=== PATIENT | female | born 1945 | race Caucasian/White ===

== ENCOUNTER 2017-05-11 18:37 | Inpatient (IN) | payer MEDICARE, MEDICAID ==
[~2017-05-11] VITALS: Ht 160 cm; Wt 89.1 kg
[2017-05-11 20:05] VITALS: BP 185/68
[2017-05-11] MEDS ORDERED: POLYETHYLENE GLYCOL 17 GM PACKET PO PRN (21:30)
[2017-05-11] MEDS ORDERED: DEXTROSE 50%, 50ML SYRINGE IVPush PRN (21:30)
[2017-05-11] MEDS ORDERED: ONDANSETRON 2MG/ML, 2ML IVPush PRN (21:30)
[2017-05-11] MEDS ORDERED: DOCUSATE 100 MG CAPSULE PO PRN (21:30)
[2017-05-11] MEDS ORDERED: GLUCAGON 1 MG IM PRN (21:30)
[2017-05-11] MEDS ORDERED: DEXTROSE 4 GM TAB.CHEW PO PRN (21:30)
[2017-05-11] MEDS ORDERED: hydrALAzine 20 MG/ML, 1ML IVPush PRN (21:30)
[2017-05-11] MEDS ORDERED: ACETAMINOPHEN 325 MG TABLET PO PRN (21:30)
[2017-05-11] MEDS: PLEASE ENTER HEIGHT AND WEIGHT MC SCH (22:00)
[2017-05-11] MEDS ORDERED: PLEASE ENTER ALLERGIES MC SCH ×4 (22:00→22:30)
[2017-05-11] MEDS ORDERED: TRAVOPROST OPHTH 0.004%, 2.5ML OP SCH (22:00)
[2017-05-11] MEDS: LACTATED RINGERS 1,000 ML IV SCH (23:06)
[2017-05-11] MEDS: CEFTRIAXONE PMX 2GM/50ML 50 ML IV SCH (23:29)
[2017-05-11] MEDS: DILTIAZEM 30 MG TABLET PO SCH (23:29)
[2017-05-12] MEDS: PLEASE ENTER HEIGHT AND WEIGHT MC SCH ×2 (00:43→14:00)
[2017-05-12 01:04] VITALS: BP 161/59
[2017-05-12 03:57] LABS: HEMATOCRIT 32.1 % (34.6-47.8); HEMOGLOBIN 10.6 g/dL (11.7-16.4); WHITE BLOOD COUNT 4.8 x10^3/uL (3.4-10)
[2017-05-12 04:09] LABS: ASPARTATE AMINO TRANSFERASE 9 U/L (15-37); BLOOD UREA NITROGEN 10 mg/dL (7-18)
[2017-05-12] MEDS ORDERED: MAGNESIUM SULFATE PMX 2GM/50ML 50 ML IV ONE (05:00)
[2017-05-12] MEDS: GUAIFENESIN/DM 200-20MG, 10ML UDC PO PRN (05:04)
[2017-05-12] MEDS ORDERED: ALBUTEROL/IPRATROPIUM 2.5MG/0.5MG, 3 ML ONE ×2 (05:06→21:37)
[2017-05-12] MEDS: ALBUTEROL/IPRATROPIUM 2.5MG/0.5MG, 3 ML NPPB SCH ×4 (05:09→14:32)
[2017-05-12 05:39] VITALS: BP 155/77
[2017-05-12] MEDS: DILTIAZEM 30 MG TABLET PO SCH ×3 (05:42→18:30)
[2017-05-12] MEDS: INSULIN ASPART 100 UNITS/ML, PEN SQ-INSULIN SCH ×3 (07:00→16:00)
[2017-05-12 07:23] VITALS: BP 152/79
[2017-05-12] MEDS: SODIUM CHLORIDE FLUSH 10ML SYR IVF SCH ×2 (09:00→23:14)
[2017-05-12] MEDS ORDERED: OMNIPAQUE 350 MG/ML, 75ML BOTTLE ONE (09:10)
[2017-05-12] MEDS: LOSARTAN 50MG TABLET PO SCH (12:12)
[2017-05-12 13:04] VITALS: BP 144/82
[2017-05-12] MEDS: LACTATED RINGERS 1,000 ML IV SCH (14:37)
[2017-05-12] MEDS ORDERED: INSULIN DETEMIR 100 UNITS/ML, PEN SQ-INSULIN SCH (17:00)
[2017-05-12] MEDS ORDERED: FENTANYL PF 250 MCG/5ML ONE (18:40)
[2017-05-12] MEDS ORDERED: LIDOCAINE GEL 2%, 5ML ONE (18:40)
[2017-05-12] MEDS ORDERED: PROPOFOL 10 MG/ML, 20ML ONE (18:44)
[2017-05-12] MEDS ORDERED: GLYCOPYRROLATE 0.2MG/1ML, 5ML ONE (18:44)
[2017-05-12] MEDS ORDERED: SUCCINYLCHOLINE 20 MG/ML, 10ML ONE (18:44)
[2017-05-12] MEDS ORDERED: DEXAMETHASONE 4 MG/ML, 1ML ONE (18:44)
[2017-05-12] MEDS ORDERED: CEFAZOLIN 1,000 MG ONE (18:44)
[2017-05-12] MEDS ORDERED: ROCURONIUM 10 MG/ML ONE (18:44)
[2017-05-12] MEDS ORDERED: ONDANSETRON 2MG/ML, 2ML ONE (18:44)
[2017-05-12] MEDS ORDERED: NEOSTIGMINE 1 MG/ML, 10ML ONE (18:44)
[2017-05-12] MEDS ORDERED: VASOPRESSIN 20 UNIT/ML, 1ML ONE (18:52)
[2017-05-12] MEDS ORDERED: EPINEPHRINE 1 MG/ML, 1ML ONE (18:54)
[2017-05-12] MEDS ORDERED: BUPIVACAINE/PF 0.5% ONE (18:54)
[2017-05-12] MEDS ORDERED: PHENYLEPHRINE 10 MG/ML ONE (19:09)
[2017-05-12] MEDS ORDERED: LABETALOL 5MG/ML, 20ML ONE (21:15)
[2017-05-12] MEDS: IBUPROFEN 200 MG TABLET PO SCH (21:30)
[2017-05-12 22:46] LABS: ABG COLLECTION SITE LEFT RADIAL; COLLATERAL CIRCULATION TESTING NORMAL
[2017-05-12] MEDS: morphine SULFATE 10 MG/ML, 1ML IVPush PRN (22:54)
[2017-05-12] MEDS: PROPOFOL 100 ML IV PRN (22:55)
[2017-05-12 22:58] LABS: ASPARTATE AMINO TRANSFERASE 74 U/L (15-37); BLOOD UREA NITROGEN 9 mg/dL (7-18)
[2017-05-12 22:59] LABS: HEMATOCRIT 31.9 % (34.6-47.8); HEMOGLOBIN 10.6 g/dL (11.7-16.4); WHITE BLOOD COUNT 13.5 x10^3/uL (3.4-10)
[2017-05-12] MEDS ORDERED: PHARMACY MAY ADJ FOR RENAL FX MC SCH (23:00)
[2017-05-12] MEDS ORDERED: LIDOCAINE-MPF 1%, 2ML ENDO PRN (23:00)
[2017-05-12] MEDS: ALBUTEROL/IPRATROPIUM 2.5MG/0.5MG, 3 ML INLINE SCH (23:00)
[2017-05-12] MEDS: ACETAMINOPHEN 325 MG TABLET PO SCH (23:11)
[2017-05-12 23:14] LABS: DIFF TOTAL CELLS COUNTED 100 CELL DIFF
[2017-05-12 23:15] LABS: VERIFY COUNTS? YES
[2017-05-12] MEDS: LATANOPROST OPHTH 0.005%, 2.5ML OP SCH (23:15)
[2017-05-12] MEDS: HEPARIN 5,000 UNITS/ML, 1ML SQ SCH ×2 (23:15→23:21)
[2017-05-12 23:16] LABS: ANISOCYTOSIS 1+
[2017-05-12 23:18] LABS: LARGE PLATELETS 1+
[2017-05-13] MEDS: DILTIAZEM 30 MG TABLET PO SCH ×5 (00:32→23:30)
[2017-05-13] MEDS: CEFTRIAXONE PMX 2GM/50ML 50 ML IV SCH (00:55)
[2017-05-13] MEDS: LACTATED RINGERS 1,000 ML IV SCH ×2 (00:56→21:41)
[2017-05-13] MEDS: INSULIN ASPART 100 UNITS/ML, PEN SQ-INSULIN SCH ×5 (01:05→21:20)
[2017-05-13] MEDS: ALBUTEROL/IPRATROPIUM 2.5MG/0.5MG, 3 ML INLINE SCH ×5 (03:00→23:00)
[2017-05-13] MEDS: ACETAMINOPHEN 325 MG TABLET PO SCH ×4 (03:33→21:21)
[2017-05-13] MEDS: IBUPROFEN 200 MG TABLET PO SCH ×4 (03:33→21:21)
[2017-05-13] MEDS: morphine SULFATE 10 MG/ML, 1ML IVPush PRN (04:22)
[2017-05-13 04:36] VITALS: BP 110/39
[2017-05-13 05:08] LABS: HEMATOCRIT 31.3 % (34.6-47.8); HEMOGLOBIN 10.3 g/dL (11.7-16.4); WHITE BLOOD COUNT 12.1 x10^3/uL (3.4-10)
[2017-05-13 05:19] LABS: ASPARTATE AMINO TRANSFERASE 55 U/L (15-37); BLOOD UREA NITROGEN 12 mg/dL (7-18)
[2017-05-13] MEDS: PLEASE ENTER HEIGHT AND WEIGHT MC SCH ×2 (06:00→06:42)
[2017-05-13 06:06] LABS: ABG COLLECTION SITE LEFT RADIAL; COLLATERAL CIRCULATION TESTING NORMAL
[2017-05-13] MEDS: HEPARIN 5,000 UNITS/ML, 1ML SQ SCH ×3 (06:39→23:32)
[2017-05-13] MEDS: LOSARTAN 50MG TABLET PO SCH (09:00)
[2017-05-13] MEDS: PROPOFOL 100 ML IV PRN (09:28)
[2017-05-13] MEDS: SODIUM CHLORIDE FLUSH 10ML SYR IVF SCH ×2 (09:39→21:19)
[2017-05-13] MEDS: FAMOTIDINE 20 MG/2 ML IVPush SCH ×2 (09:39→21:19)
[2017-05-13] MEDS ORDERED: MAGNESIUM SULFATE PMX 4GM/100M 100 ML IV ONE (11:00)
[2017-05-13] MEDS: OXYcodone IR 5MG TABLET PO PRN (18:17)
[2017-05-13] MEDS: LATANOPROST OPHTH 0.005%, 2.5ML OP SCH (21:20)
[2017-05-13] MEDS: CEFTRIAXONE 2,000 MG in DEXTROSE 5% 50 ML IV SCH (21:38)
[2017-05-14] MEDS ORDERED: ALBUTEROL/IPRATROPIUM 2.5MG/0.5MG, 3 ML NPPB SCH (03:00)
[2017-05-14] MEDS: ACETAMINOPHEN 325 MG TABLET PO SCH ×4 (03:30→20:32)
[2017-05-14 04:30] LABS: ABG COLLECTION SITE RIGHT BRACHIAL
[2017-05-14] MEDS: IBUPROFEN 200 MG TABLET PO SCH ×4 (04:51→20:31)
[2017-05-14] MEDS: DILTIAZEM 30 MG TABLET PO SCH ×3 (04:52→17:41)
[2017-05-14 04:53] VITALS: BP 145/54
[2017-05-14 05:06] LABS: HEMATOCRIT 31.5 % (34.6-47.8); HEMOGLOBIN 10.4 g/dL (11.7-16.4); WHITE BLOOD COUNT 7.8 x10^3/uL (3.4-10)
[2017-05-14 05:10] LABS: ASPARTATE AMINO TRANSFERASE 24 U/L (15-37); BLOOD UREA NITROGEN 17 mg/dL (7-18)
[2017-05-14] MEDS: ALBUTEROL/IPRATROPIUM 2.5MG/0.5MG, 3 ML NPPB SCH ×5 (07:20→18:40)
[2017-05-14] MEDS: HEPARIN 5,000 UNITS/ML, 1ML SQ SCH ×3 (08:52→23:33)
[2017-05-14] MEDS: INSULIN ASPART 100 UNITS/ML, PEN SQ-INSULIN SCH ×4 (08:53→20:32)
[2017-05-14] MEDS: FAMOTIDINE 20 MG/2 ML IVPush SCH ×2 (08:53→20:39)
[2017-05-14] MEDS: LOSARTAN 50MG TABLET PO SCH (08:53)
[2017-05-14] MEDS: SODIUM CHLORIDE FLUSH 10ML SYR IVF SCH (08:53)
[2017-05-14] MEDS: ALBUTEROL/IPRATROPIUM 2.5MG/0.5MG, 3 ML INLINE SCH (16:42)
[2017-05-14 17:38] VITALS: BP 141/73
[2017-05-14] MEDS: INSULIN DETEMIR 100 UNITS/ML, PEN SQ-INSULIN SCH (17:41)
[2017-05-14] MEDS ORDERED: DILTIAZEM 5 MG/ML, 5ML ONE (18:55)
[2017-05-14] MEDS ORDERED: DILTIAZEM 125 MG in SODIUM CHLORIDE 0.9% 100 ML IV PRN ×2 (19:00→19:30)
[2017-05-14] MEDS ORDERED: CALCIUM GLUCONATE 4.6 MEQ in SODIUM CHLORIDE 0.9% 50 ML IV ONE (19:00)
[2017-05-14] MEDS ORDERED: DILTIAZEM 5 MG/ML, 5ML IVPush ONE (19:00)
[2017-05-14 19:38] VITALS: BP 134/70
[2017-05-14] MEDS: DILTIAZEM 125 MG in SODIUM CHLORIDE 0.9% 100 ML IV PRN (20:14)
[2017-05-14] MEDS: FLUTICASONE/VILANTEROL 200-25MCG/INH INH SCH (20:32)
[2017-05-14] MEDS: LATANOPROST OPHTH 0.005%, 2.5ML OP SCH (20:32)
[2017-05-14 21:37] VITALS: BP 109/64
[2017-05-14] MEDS: CEFTRIAXONE 2,000 MG in DEXTROSE 5% 50 ML IV SCH (21:54)
[2017-05-14] MEDS: OXYcodone IR 5MG TABLET PO PRN (22:02)
[2017-05-15] MEDS ORDERED: INSU100V12 INJ ×2 (00:48)
[2017-05-15] MEDS ORDERED: TIOT18CA INH (00:48)
[2017-05-15] MEDS ORDERED: ALBU6.7H NPPB (00:48)
[2017-05-15] MEDS ORDERED: IBAN150T PO (00:48)
[2017-05-15] MEDS ORDERED: BUDE10.2 INH (00:48)
[2017-05-15] MEDS ORDERED: LINA5TAB PO (00:48)
[2017-05-15] MEDS ORDERED: ALBU90AE INH (00:48)
[2017-05-15] MEDS ORDERED: INSU100C5 SQ-INSULIN (00:48)
[2017-05-15] MEDS ORDERED: TRAV5DRO EACHEYE (00:48)
[2017-05-15] MEDS ORDERED: LOSA50TA6 PO (00:48)
[2017-05-15 02:21] VITALS: BP 108/64
[2017-05-15] MEDS: ACETAMINOPHEN 325 MG TABLET PO SCH ×5 (03:30→21:30)
[2017-05-15] MEDS: IBUPROFEN 200 MG TABLET PO SCH ×4 (03:30→21:30)
[2017-05-15 05:23] LABS: HEMATOCRIT 29.4 % (34.6-47.8); HEMOGLOBIN 9.7 g/dL (11.7-16.4); WHITE BLOOD COUNT 5.8 x10^3/uL (3.4-10)
[2017-05-15 05:35] LABS: BLOOD UREA NITROGEN 15 mg/dL (7-18)
[2017-05-15] MEDS: ALBUTEROL/IPRATROPIUM 2.5MG/0.5MG, 3 ML NPPB SCH ×3 (07:00→15:00)
[2017-05-15] MEDS: DILTIAZEM 125 MG in SODIUM CHLORIDE 0.9% 100 ML IV PRN (07:28)
[2017-05-15 07:47] VITALS: BP 134/74
[2017-05-15] MEDS: HEPARIN 5,000 UNITS/ML, 1ML SQ SCH ×3 (08:27→23:11)
[2017-05-15] MEDS: INSULIN ASPART 100 UNITS/ML, PEN SQ-INSULIN SCH ×4 (08:28→21:52)
[2017-05-15] MEDS: FAMOTIDINE 20 MG/2 ML IVPush SCH ×2 (08:30→21:50)
[2017-05-15] MEDS: FLUTICASONE/VILANTEROL 200-25MCG/INH INH SCH (08:34)
[2017-05-15] MEDS: LOSARTAN 50MG TABLET PO SCH (08:38)
[2017-05-15] MEDS: DILTIAZEM 60 MG TABLET PO SCH ×3 (11:40→21:53)
[2017-05-15 11:45] VITALS: BP 110/67
[2017-05-15 14:57] VITALS: BP 119/66
[2017-05-15 17:10] VITALS: BP 153/62
[2017-05-15] MEDS: INSULIN DETEMIR 100 UNITS/ML, PEN SQ-INSULIN SCH (17:15)
[2017-05-15 20:29] VITALS: BP 125/70
[2017-05-15] MEDS ORDERED: ALBUTEROL/IPRATROPIUM 2.5MG/0.5MG, 3 ML ONE (21:16)
[2017-05-15] MEDS: CEFTRIAXONE 2,000 MG in DEXTROSE 5% 50 ML IV SCH (21:51)
[2017-05-15] MEDS: LATANOPROST OPHTH 0.005%, 2.5ML OP SCH (21:53)
[2017-05-16 03:09] VITALS: BP 152/73
[2017-05-16] MEDS: IBUPROFEN 200 MG TABLET PO SCH ×4 (03:30→20:54)
[2017-05-16] MEDS: ACETAMINOPHEN 325 MG TABLET PO SCH ×4 (03:30→20:53)
[2017-05-16 05:01] LABS: HEMATOCRIT 30.6 % (34.6-47.8); WHITE BLOOD COUNT 7.4 x10^3/uL (3.4-10)
[2017-05-16] MEDS: INSULIN DETEMIR 100 UNITS/ML, PEN SQ-INSULIN SCH ×2 (05:04→16:17)
[2017-05-16 05:11] LABS: BLOOD UREA NITROGEN 9 mg/dL (7-18)
[2017-05-16] MEDS: ASPIRIN 81 MG TABLET EC PO SCH (05:48)
[2017-05-16] MEDS ORDERED: MAGNESIUM SULFATE PMX 4GM/100M 100 ML IV ONE (07:00)
[2017-05-16] MEDS ORDERED: ALBUTEROL/IPRATROPIUM 2.5MG/0.5MG, 3 ML NPPB PRN (07:00)
[2017-05-16 07:59] VITALS: BP 146/72
[2017-05-16] MEDS: FAMOTIDINE 20 MG/2 ML IVPush SCH (08:41)
[2017-05-16] MEDS: INSULIN ASPART 100 UNITS/ML, PEN SQ-INSULIN SCH ×4 (08:41→21:08)
[2017-05-16] MEDS: HEPARIN 5,000 UNITS/ML, 1ML SQ SCH ×3 (08:41→23:08)
[2017-05-16] MEDS: LOSARTAN 50MG TABLET PO SCH (08:42)
[2017-05-16] MEDS: DILTIAZEM 60 MG TABLET PO SCH ×3 (08:42→20:54)
[2017-05-16] MEDS: FLUTICASONE/VILANTEROL 200-25MCG/INH INH SCH (08:43)
[2017-05-16] MEDS: GUAIFENESIN/DM 200-20MG, 10ML UDC PO PRN (11:36)
[2017-05-16 12:07] VITALS: BP 127/69
[2017-05-16 20:00] VITALS: BP 156/68
[2017-05-16] MEDS: LATANOPROST OPHTH 0.005%, 2.5ML OP SCH (20:53)
[2017-05-16] MEDS: CEFTRIAXONE 2,000 MG in DEXTROSE 5% 50 ML IV SCH (20:54)
[2017-05-16] MEDS: FAMOTIDINE 20 MG TABLET PO SCH (20:54)
[2017-05-17 01:45] VITALS: BP 160/79
[2017-05-17] MEDS: ACETAMINOPHEN 325 MG TABLET PO SCH ×5 (03:30→21:59)
[2017-05-17] MEDS: IBUPROFEN 200 MG TABLET PO SCH ×4 (03:30→21:30)
[2017-05-17] MEDS: INSULIN DETEMIR 100 UNITS/ML, PEN SQ-INSULIN SCH ×2 (05:49→16:52)
[2017-05-17] MEDS: ASPIRIN 81 MG TABLET EC PO SCH (05:49)
[2017-05-17 05:53] LABS: HEMATOCRIT 31.7 % (34.6-47.8); HEMOGLOBIN 10.3 g/dL (11.7-16.4); WHITE BLOOD COUNT 7.1 x10^3/uL (3.4-10)
[2017-05-17 06:08] LABS: BLOOD UREA NITROGEN 5 mg/dL (7-18)
[2017-05-17 08:00] VITALS: BP 138/67
[2017-05-17] MEDS: FLUTICASONE/VILANTEROL 200-25MCG/INH INH SCH (08:40)
[2017-05-17] MEDS: HEPARIN 5,000 UNITS/ML, 1ML SQ SCH ×2 (08:41→16:10)
[2017-05-17] MEDS: INSULIN ASPART 100 UNITS/ML, PEN SQ-INSULIN SCH ×4 (08:41→22:00)
[2017-05-17] MEDS: DILTIAZEM 60 MG TABLET PO SCH ×3 (08:42→21:57)
[2017-05-17] MEDS: FAMOTIDINE 20 MG TABLET PO SCH ×2 (08:42→21:58)
[2017-05-17] MEDS: LOSARTAN 50MG TABLET PO SCH (08:42)
[2017-05-17 14:09] VITALS: BP 141/77
[2017-05-17 19:45] VITALS: BP 106/64
[2017-05-17] MEDS: GUAIFENESIN/DM 200-20MG, 10ML UDC PO PRN (21:56)
[2017-05-17] MEDS: CEFTRIAXONE 2,000 MG in DEXTROSE 5% 50 ML IV SCH (21:59)
[2017-05-17] MEDS: LATANOPROST OPHTH 0.005%, 2.5ML OP SCH (21:59)
[2017-05-18] MEDS: HEPARIN 5,000 UNITS/ML, 1ML SQ SCH ×3 (00:40→16:27)
[2017-05-18 00:45] VITALS: BP_SYST 152; BP_SYST 154; BP_DIAS 100; BP_DIAS 77
[2017-05-18] MEDS: ASPIRIN 81 MG TABLET EC PO SCH (05:59)
[2017-05-18] MEDS: INSULIN DETEMIR 100 UNITS/ML, PEN SQ-INSULIN SCH ×2 (05:59→16:29)
[2017-05-18] MEDS: IBUPROFEN 200 MG TABLET PO SCH ×4 (06:02→22:05)
[2017-05-18] MEDS: ACETAMINOPHEN 325 MG TABLET PO SCH ×4 (06:02→22:05)
[2017-05-18 06:14] LABS: HEMOGLOBIN 10.1 g/dL (11.7-16.4); WHITE BLOOD COUNT 6.5 x10^3/uL (3.4-10)
[2017-05-18 06:25] LABS: BLOOD UREA NITROGEN 7 mg/dL (7-18)
[2017-05-18] MEDS ORDERED: MAGNESIUM SULFATE PMX 2GM/50ML 50 ML IV ONE (09:00)
[2017-05-18] MEDS ORDERED: DILTIAZEM 30 MG TABLET ONE ×4 (09:21→21:59)
[2017-05-18 09:33] VITALS: BP 156/70
[2017-05-18] MEDS: FLUTICASONE/VILANTEROL 200-25MCG/INH INH SCH (09:38)
[2017-05-18] MEDS: FAMOTIDINE 20 MG TABLET PO SCH ×2 (09:38→22:04)
[2017-05-18] MEDS: INSULIN ASPART 100 UNITS/ML, PEN SQ-INSULIN SCH ×4 (09:38→22:33)
[2017-05-18] MEDS: LOSARTAN 50MG TABLET PO SCH (09:39)
[2017-05-18] MEDS: DILTIAZEM 90 MG TABLET PO SCH ×3 (09:39→21:00)
[2017-05-18 16:17] VITALS: BP 152/74
[2017-05-18 20:00] VITALS: BP 142/55
[2017-05-18] MEDS ORDERED: DILTIAZEM 60 MG TABLET ONE (21:57)
[2017-05-18] MEDS: LATANOPROST OPHTH 0.005%, 2.5ML OP SCH (22:06)
[2017-05-18] MEDS: CEFTRIAXONE 2,000 MG in DEXTROSE 5% 50 ML IV SCH (22:06)
[2017-05-19 03:00] VITALS: BP 115/66
[2017-05-19] MEDS: ACETAMINOPHEN 325 MG TABLET PO SCH ×2 (03:30→07:51)
[2017-05-19] MEDS: IBUPROFEN 200 MG TABLET PO SCH ×2 (03:30→07:51)
[2017-05-19] MEDS: ASPIRIN 81 MG TABLET EC PO SCH (05:59)
[2017-05-19] MEDS: INSULIN DETEMIR 100 UNITS/ML, PEN SQ-INSULIN SCH (05:59)
[2017-05-19 06:35] LABS: HEMATOCRIT 29.2 % (34.6-47.8); HEMOGLOBIN 9.6 g/dL (11.7-16.4); WHITE BLOOD COUNT 5.4 x10^3/uL (3.4-10)
[2017-05-19 06:45] LABS: BLOOD UREA NITROGEN 8 mg/dL (7-18)
[2017-05-19] MEDS: INSULIN ASPART 100 UNITS/ML, PEN SQ-INSULIN SCH ×2 (07:50→12:20)
[2017-05-19] MEDS: FLUTICASONE/VILANTEROL 200-25MCG/INH INH SCH (07:50)
[2017-05-19] MEDS: HEPARIN 5,000 UNITS/ML, 1ML SQ SCH ×2 (07:50)
[2017-05-19 07:52] VITALS: BP 156/75
[2017-05-19] MEDS: FAMOTIDINE 20 MG TABLET PO SCH (07:52)
[2017-05-19] MEDS: DILTIAZEM 90 MG TABLET PO SCH (07:52)
[2017-05-19] MEDS: LOSARTAN 50MG TABLET PO SCH (07:52)
[2017-05-19] MEDS ORDERED: FUROSEMIDE 40 MG/4 ML ONE (08:24)
[2017-05-19] MEDS ORDERED: FUROSEMIDE 40 MG/4 ML IV ONE (08:30)
[2017-05-19] MEDS ORDERED: DILT90TA PO (11:16)
[2017-05-19] MEDS ORDERED: ASPI-621 PO (11:16)
[2017-05-19] MEDS ORDERED: CEFT2FRO2 IV (11:20)
== END 2017-05-19 17:50 | DRG 163 ==
LOC: 5SO 20:08 → CCU 05-12 22:32 → 4NOR 05-14 13:15 → 5SO 05-14 19:26
PROVIDERS: ADMIT Hospitalist; ATTEND Family Medicine
PROC: 02HV33Z Insertion of Infusion Device into Superior Vena Cava, Percutaneous Approach (ICD-10-PCS; 2017-05-11)
PROC: 0BJK4ZZ Inspection of Right Lung, Percutaneous Endoscopic Approach (ICD-10-PCS; 2017-05-12)
PROC: 0BNM4ZZ Release Bilateral Lungs, Percutaneous Endoscopic Approach (ICD-10-PCS; principal; 2017-05-12 18:00)
PROC: 5A1935Z Respiratory Ventilation, Less than 24 Consecutive Hours (ICD-10-PCS; 2017-05-13)
PROC: 0BH17EZ Insertion of Endotracheal Airway into Trachea, Via Natural or Artificial Opening (ICD-10-PCS; 2017-05-13)
DX: J96.21 Acute and chronic respiratory failure with hypoxia (principal); J18.9 Pneumonia, unspecified organism; J86.9 Pyothorax without fistula; Z99.11 Dependence on respirator [ventilator] status; R78.81 Bacteremia; J90 Pleural effusion, not elsewhere classified; K31.84 Gastroparesis; E11.43 Type 2 diabetes mellitus with diabetic autonomic (poly)neuropathy; J44.0 Chronic obstructive pulmonary disease with (acute) lower respiratory infection; J96.22 Acute and chronic respiratory failure with hypercapnia; B95.5 Unspecified streptococcus as the cause of diseases classified elsewhere; E11.319 Type 2 diabetes mellitus with unspecified diabetic retinopathy without macular edema; E11.65 Type 2 diabetes mellitus with hyperglycemia; E78.2 Mixed hyperlipidemia; I08.1 Rheumatic disorders of both mitral and tricuspid valves; I10 Essential (primary) hypertension; I48.91 Unspecified atrial fibrillation; Z79.4 Long term (current) use of insulin; Z82.5 Family history of asthma and other chronic lower respiratory diseases; Z88.0 Allergy status to penicillin; Z87.891 Personal history of nicotine dependence; Z99.81 Dependence on supplemental oxygen
CPT/HCPCS: 36415; 36600; 71010; 71260; 74230; 80048; 80053; 82803; 82962; 83036; 83735; 84100; 84439; 84443; 84478; 85025; 87015; 87040; 87070; 87075; 87081; 87102; 87116; 87176; 87205; 87206; 87324; 88305; 93005; 93306; 94002; 94003; 94150; 94640; C1729; J0171; J0610; J0690; J0696; J1100; J1644; J1815; J1940; J2405; J2704; J2710; J3010; J3490; J7620; Q9967; J0330; J2270; J2370; J3475; J7120; S0028